=== PATIENT | male | born 1935 | race Caucasian/White ===

== ENCOUNTER → 2018-11-21 | Outpatient (CLI) | payer MEDICARE, OTHER ==
[2018-11-21 10:04] LABS: HEMATOCRIT 37.2 % (42.0-52.0); HEMOGLOBIN 12.6 gm/dL (14.0-18.0); MCHC 33.9 g/dL (28.0-37.0); MCV 97.3 fL (80.0-100.0); NUCLEATED RBCS 0 /100WBC; PLATELET COUNT* 276 thou/uL (150-400); RBC 3.83 mil/uL (4.50-6.00); RDW-CV 13.7 % (10.5-14.5); WBC 9.2 thou/uL (4.0-11.0)
[2018-11-21 10:11] LABS: ALBUMIN 3.3 g/dL (3.4-5.0); CALCIUM 9.1 mg/dL (8.5-10.1); CREATININE 1.1 mg/dL (0.6-1.3); POTASSIUM 3.9 mmol/L (3.5-5.1); TOTAL BILIRUBIN 0.7 mg/dL (<0.1-1.0); TOTAL PROTEIN 7.2 g/dL (6.4-8.2)
[2018-11-21 10:55] LABS: ABSOLUTE EOSINOPHILS 0.7 thou/uL (0.0-0.7); ABSOLUTE LYMPHOCYTES 1.2 thou/uL (0.8-5.3); ABSOLUTE MONOCYTES 0.3 thou/uL (0.0-1.2); PLATELET ESTIMATE ADEQUATE
[2018-11-21 10:56] LABS: ANISOCYTOSIS 1+; POIKILOCYTOSIS 1+
[2018-11-21 11:09] LABS: ESR (SEDRATE) 30 mm/hr (0-20)
== END ==
LOC: M.LAB 09:31
PROVIDERS: Psychiatry & Neurology Neuromuscular Medicine
DX: G20 Parkinson's disease (principal); R29.2 Abnormal reflex; R53.83 Other fatigue

== ENCOUNTER 2021-01-29 10:08 | Emergency (ER) | payer MEDICARE, OTHER ==
[~2021-01-29] VITALS: Ht 182.9 cm; Wt 83.9 kg
[2021-01-29 10:16] VITALS: BP 128/53
[2021-01-29 11:14] LABS: HEMATOCRIT 30.1 % (42.0-52.0); HEMOGLOBIN 10.5 gm/dL (14.0-18.0); MCH 33.2 pg (26.0-34.0); MCV 94.7 fL (80.0-100.0); MPV 7.9 fl. (7.2-11.1); NUCLEATED RBCS 0 /100WBC; PLATELET COUNT* 211 thou/uL (150-400); RBC 3.18 mil/uL (4.50-6.00)
[2021-01-29 11:29] LABS: CALCIUM 8.4 mg/dL (8.5-10.1); CREATININE 1.5 mg/dL (0.6-1.3); POTASSIUM 4.3 mmol/L (3.5-5.1)
[2021-01-29 11:40] LABS: ALBUMIN 3.3 g/dL (3.4-5.0); TOTAL BILIRUBIN 0.8 mg/dL (<0.1-1.0); TOTAL PROTEIN 6.4 g/dL (6.4-8.2)
[2021-01-29 11:52] LABS: ABSOLUTE LYMPHOCYTES 0.5 thou/uL (0.8-5.3); ABSOLUTE MONOCYTES 0.6 thou/uL (0.0-1.2); ABSOLUTE NEUTROPHILS 6.9 thou/uL (1.6-8.1); METAMYELOCYTES 3 %; MYELOCYTES 1 %; PLATELET ESTIMATE ADEQUATE
[2021-01-29 11:53] LABS: OVALOCYTES 1+
[2021-01-29] MEDS ORDERED: ZPAK PO (12:01)
[2021-01-29] MEDS ORDERED: DECADRON4 MG PO (12:01)
[2021-01-29] MEDS ORDERED: VENTOLIN HFA 1818 GM INH (12:58)
[2021-01-29 13:31] VITALS: BP 125/60
--- NOTE | 2021-01-30 09:22 | EKG ---
[place] [address] ELECTROCARDIOGRAM REPORT Name: JJROCCO JASMIN Room: [facility]#: [id number] Admission: 01/29/21 Attend Phys: Discharge: 01/29/21 Date of : 37 Date of Service: 01/29/21 1008 Report #: [id number] THIS REPORT FOR: //name// [facility] ED Test Date: 2021-01-29 Test Time: 10:08:34 Pat Name: ROCCO GARDNER Department: Room: [facility] Gender: M [employer]: : [id number] Requested By: Megha Brennan Order Number: [id number] MD: Jayden Smith Measurements Intervals [place] Rate: 60 P: NV: QRS: -124 QRSD: 173 T: 167 QT: 507 QTc: 507 Interpretive Statements atrial and ventricular paced rhythm Compared to ECG 02/13/2007 11:38:21 paced rhythm now noted Electronically Signed On 01-30-2021 9:22:22 CDT by Jayden Smith [email or web address] <ELECTRONICALLY SIGNED> By: Jayden Smith MD, FACC 01/30/21 0922 Jayden Smith MD, [facility] /EPI
== END 2021-01-29 13:31 | disposition home or self-care (01) ==
LOC: M.ERS 10:08 → M.TBA-ER 12:42 → M.ERS 13:31
PROVIDERS: Nurse Practitioner Family
DX: U07.1 COVID-19 (principal); R53.1 Weakness; Z74.1 Need for assistance with personal care; E78.00 Pure hypercholesterolemia, unspecified; G20 Parkinson's disease; Z90.89 Acquired absence of other organs; Z98.890 Other specified postprocedural states